=== PATIENT | female | born 1985 | race Caucasian/White ===

== ENCOUNTER 2024-11-24 00:43 | Emergency (ER) | payer OTHER, SELFPAY ==
[2024-11-24 00:51] VITALS: BP 110/75; PULSE 67; RESP 20; TEMP 36.5; O2SAT 99; BMI 24.2
--- NOTE | 2024-11-24 00:56 | ECG_ITS ---
[facility] Test Date: 2024-11-24 Pat Name: Kaylynn Jones Department: Room: Gender: Female Conflicts Analyst: : 1985 Requested By: Jake Concepcion Order Number: [id number] Bryan MD: SARIAH MC Measurements Intervals [place] Rate: 66 P: 54 OK: 150 QRS: 81 QRSD: 96 T: 70 QT: 392 QTc: 412 Interpretive Statements SINUS RHYTHM WITH SINUS ARRHYTHMIA No previous ECG available for comparison Electronically Signed On 11-24-2024 23:21:15 CDT by SARIAH MC [email or web address]
--- NOTE | 2024-11-24 00:56 | XRR_ITS ---
PROCEDURE INFORMATION: Exam: XR Chest Exam date and time: 11/24/2024 1:00 AM Age: 39 years old Clinical indication: Other: Syncope TECHNIQUE: Imaging protocol: Radiologic exam of the chest. Views: 1 view. COMPARISON: No relevant prior studies available. FINDINGS: Lungs: Unremarkable. No consolidation. Pleural spaces: Unremarkable. No pleural effusion. No pneumothorax. Heart/Mediastinum: Unremarkable. No cardiomegaly. Bones/joints: Unremarkable. XR/XR chest 1V portable [id number] IMPRESSION: No acute findings.
--- NOTE | 2024-11-24 00:57 | CTR_ITS ---
PROCEDURE INFORMATION: Exam: CT Head Without Contrast Exam date and time: 11/24/2024 1:15 AM Age: 39 years old Clinical indication: Dizziness; Additional info: Syncope/ tingling/ dizzy TECHNIQUE: Imaging protocol: Computed tomography of the head without contrast. Radiation optimization: All CT scans at this facility use at least one of these dose optimization techniques: automated exposure control; mA and/or kV adjustment per patient size (includes targeted exams where dose is matched to clinical indication); or iterative reconstruction. COMPARISON: No relevant prior studies available. RADIATION DOSE METRICS: Total DLP (mGy-cm): 1028.58 FINDINGS: Brain: Normal. No hemorrhage. Unremarkable white matter. No mass effect. Cerebral ventricles: No ventriculomegaly. Paranasal sinuses: Visualized sinuses are unremarkable. No fluid levels. Mastoid air cells: Visualized mastoid air cells are well aerated. Bones: Unremarkable. No acute fracture. Soft tissues: Unremarkable. CT/CT head wo con* [id number] IMPRESSION: No acute intracranial abnormality.
[2024-11-24 01:30] VITALS: BP 112/72; PULSE 71; O2SAT 100
[2024-11-24 01:40] LABS: Hematocrit 40.4 % (36-47); Hemoglobin 13.70 g/dL (11.27-16.99); Mean Corpuscular HGB Conc 33.9 g/dL (30-55); Mean Corpuscular Hemoglobin 29.1 pg (27-33); Mean Corpuscular Volume 86.0 fl (85-98); Nucleated Red Blood Cells % 0 %; Platelet Count 299 10^3/cmm (157-399); Red Blood Count 4.70 10^6/uL (3.85-5.65); White Blood Count 19.52 10^3/uL (3.29-11.43)
[2024-11-24 02:00] VITALS: BP 105/70; PULSE 76; O2SAT 100
[2024-11-24 02:01] LABS: Glucose Urine UA Norm (Normal); Nitrate Urine Negative (Negative); Specific Gravity, Urine 1.020 (1.005-1.030)
[2024-11-24 02:02] LABS: Troponin(5th) Baseline < 6 ng/L (0-10)
[2024-11-24 02:04] LABS: Add Urine Microscopic? YES; UA Manual Slide Review YES
[2024-11-24 02:05] LABS: Alanine Aminotransferase 20 U/L (0-33); Albumin Level 4.1 g/dL (3.5-5.2); Alkaline Phosphatase 55 U/L (35-105); Anion Gap 14.8 (5-19); Aspartate Amino Transferase 24 U/L (0-32); Blood Urea Nitrogen 10 mg/dL (6-20); Calcium 8.2 mg/dL (8.5-10.5); Carbon Dioxide 22 mmol/L (22-29); Chloride 106 mmol/L (98-107); Creatinine Clr Calc Pharmacy 122.3206; Globulin 1.9 g/dL (1.3-4.6); Glucose 119 mg/dL (65-115); Osmolality Calculated 288 mOsm/kg (285-295); Potassium 3.8 mmol/L (3.5-5.1); Sodium 139 mmol/L (136-145); Total Protein 6.0 g/dL (6.6-8.7)
[2024-11-24 02:07] LABS: HCG, Serum Qual Negative (Negative)
[2024-11-24 02:20] LABS: Lipase 22 U/L (13-60)
[2024-11-24 02:30] VITALS: BP 140/76; PULSE 80; O2SAT 97
[2024-11-24 03:00] VITALS: BP 103/63; PULSE 71; O2SAT 98
--- NOTE | 2024-11-24 03:09 | W.ED.SYNCOPE ---
HPI - Syncope General: Chief Complaint: Syncope Stated Complaint: Faint Pulse\Weird Tingling\Passing Out Time Seen by Provider: 11/24/24 01:33 History of Present Illness: Patient is a 39-year-old female who presents to the emergency department in the egg setter hours after an episode of near-syncope. She reports getting up to urinate when she suddenly felt nauseated. After urinating, she sat down on the bathroom floor due to feeling lightheaded and dizzy. She denies actually vomiting but continued to feel nauseated. The patient experienced generalized paresthesia, described as tingling sensations that were more pronounced in her arms but felt all over her body. These sensations were intermittent, coming and going. She managed to return to the bedroom where she woke her , who noted that her pulse was weak and slow at both carotid and radial sites. The patient denies any prior similar episodes except for one instance over ten years ago when she was actively vomiting. She reports feeling well the day prior with no prodromal symptoms. Of note, the patient reports being outside all day Monday and Monday with minimal fluid intake ( probably a bottle of water). Her also mentioned that their child had a brief stomach upset after dinner, though the patient denies consuming any suspicious food. Related Data Home Medications ?Medication ?Instructions ?Recorded ?Confirmed No Known Home Medications 12/23/19 01/01/20 Allergies Allergy/AdvReac Type Severity Reaction Status Date / Time No Known Allergies Allergy Unverified 01/01/20 09:24 [facility] ED [facility]: Medical History (Updated 11/24/24 @ 03:12 by Jake Colbert DO) No pertinent past medical history Surgical History (Updated 12/25/19 @ 09:21 by Shay Rose MD) S/P laparoscopic cholecystectomy (~2009) Performed in [place]. S/P tubal ligation (~2009) Laparoscopic. Performed in [place]. Family History Family/Other CAD (coronary artery disease) Maternal Uncle Grandfather CAD (coronary artery disease) Paternal Grandmother CAD (coronary artery disease) Maternal Diabetes Maternal Mother Family history of thyroid problem Social History (Updated 01/04/20 @ 13:46 by Shay Rose MD) Smoking and tobacco/nicotine status: never used tobacco/nicotine Alcohol intake: current Substance/Drug Use: never Physical Exam Const: COMMON NORMALS: no acute distress and alert GENERAL APPEARANCE: cooperative; not ill appearing and not frail appearing HENMT: COMMON NORMALS: normocephalic, atraumatic and Normal external nose present HEAD & SCALP: normocephalic and atraumatic FACE & SINUS: normal facial exam and face symmetric NOSE: Normal external nose present Eye: COMMON NORMALS: Equal, round and reactive pupils present and EOMs intact bilaterally PUPIL: Yes Equal, round and reactive pupils present Neck/C-Spine: GENERAL: Yes trachea midline Chest: CHEST: Yes Symmetrical chest wall rise Resp: COMMON NORMALS: normal respiratory effort, No retractions, No use of accessory muscles and clear to auscultation bilaterally AUSCULTATION: clear to auscultation bilaterally Cardio: COMMON NORMALS: regular rate and regular rhythm RATE: regular rate RHYTHM: regular rhythm GI: COMMON NORMALS: Normal to inspection, nondistended, normoactive bowel sounds present Extremity: COMMON NORMALS: no pedal edema Neuro: ANNABEL COMA SCALE: document GCS findings Annabel coma scale eye opening: Spontaneous [place] coma scale verbal response: Orientated Annabel coma scale motor response: Obey commands [place] coma scale total score: 15 COMMON NORMALS: moves all extremities and no focal motor deficits SENSORIUM/ORIENTATION: Yes alert SENSORY EXAM: Yes extremities (intact) Psych: COMMON NORMALS: speech normal SPEECH: Yes normal speech Skin: COMMON NORMALS: no rashes or lesions noted GENERAL SKIN EXAM: no rashes or lesions noted Course Vital Signs: Vital signs: Vital Signs Temperature 97.7 F 11/24/24 00:51 Pulse Rate 73 11/24/24 03:15 Respiratory Rate 20 H 11/24/24 00:51 Blood Pressure 117/72 11/24/24 03:15 Pulse Oximetry 98 11/24/24 03:15 Oxygen Delivery Me thod Room Air 11/24/24 02:00 MDM - Syncope Medical Decision Making 39-year-old female with near syncopal episode. This happened while urinating. By history, sounds to be vasovagal in nature. EKG shows sinus rhythm with sinus arrhythmia. Rate is 65. [place] is normal. Intervals are normal. No ST-T wave changes. EKG timed 0050 with interpretation [address]52[address] Head CT is nonacute. Chest x-ray is negative. White blood cell count is 19, but with no left shift. 80% neutrophils. CRP is only 3. Urinalysis is heavily contaminated. She did admit to being outside the past 2 days and not drinking much water. Because of this, she was given a liter bolus. She is feeling somewhat improved. She will be discharged home Lab Data 11/24/24 01:33 11/24/24 01:33 Radiology Impressions Chest X-Ray 11/24/24 00:56 IMPRESSION: No acute findings. Head CT 11/24/24 00:57 IMPRESSION: No acute intracranial abnormality. Laboratory Results WBC 19.52 10^3/uL (3.29-11.43) H 11/24/24 01:33 RBC 4.70 10^6/uL (3.85-5.65) 11/24/24 01:33 Hgb 13.70 g/dL (11.27-16.99) 11/24/24 01:33 Hct 40.4 % (36-47) 11/24/24 01:33 MCV 86.0 fl (85-98) 11/24/24 01:33 MCH 29.1 pg (27-33) 11/24/24 01:33 MCHC 33.9 g/dL (30-55) 11/24/24 01:33 RDW 12.4 % (12.1-15.1) 11/24/24 01:33 Plt Count 299 10^3/cmm (157-399) 11/24/24 01:33 MPV 9.2 fL (7.4-10.4) 11/24/24 01:33 Neut % (Auto) 79.8 % 11/24/24 01:33 Lymph % (Auto) 8.9 % 11/24/24 01:33 [place] % (Auto) 9.6 % 11/24/24 01:33 Eos % (Auto) 1.1 % 11/24/24 01:33 Baso % (Auto) 0.2 % 11/24/24 01:33 Neut # (Auto) 15.57 10^3/uL (1.8-7.7) H 11/24/24 01:33 Lymph # (Auto) 1.7 10^3/uL (0.8-4.8) 11/24/24 01:33 [place] # (Auto) 1.9 10^3/uL (0.2-0.9) H 11/24/24 01:33 Eos # (Auto) 0.2 10^3/uL (0.0-0.8) 11/24/24 01:33 Baso # (Auto) 0.0 10^3/uL (0.0-0.1) 11/24/24 01:33 Nucleated RBC % (auto) 0 % 11/24/24 01:33 Nucleated RBCs # 0.0 /100WBC 11/24/24 01:33 Sodium 139 mmol/L (136-145) 11/24/24 01:33 Potassium 3.8 mmol/L (3.5-5.1) 11/24/24 01:33 Chloride 106 mmol/L (98-107) 11/24/24 01:33 Carbon Dioxide 22 mmol/L (22-29) 11/24/24 01:33 Anion Gap 14.8 (5-19) 11/24/24 01:33 BUN 10 mg/dL (6-20) 11/24/24 01:33 Creatinine 0.6 mg/dL (0.5-0.9) 11/24/24 01:33 GFR Calculation 110.2 mL/min (90-130) 11/24/24 01:33 Glucose 119 mg/dL (65-115) H 11/24/24 01:33 Calculated Osmolality 288 mOsm/kg (285-295) 11/24/24 01:33 Calcium 8.2 mg/dL (8.5-10.5) L 11/24/24 01:33 Total Bilirubin 0.3 mg/dL (0.15-1.2) 11/24/24 01:33 AST 24 U/L (0-32) 11/24/24 01:33 ALT 20 U/L (0-33) 11/24/24 01:33 Alkaline Phosphatase 55 U/L (35-105) 11/24/24 01:33 Troponin T Baseline < 6 ng/L (0-10) 11/24/24 01:33 Troponin T 120 Minute < 6.0 ng/L (0-10) 11/24/24 03:09 Delta Troponin T 0 ABS# (0-10) 11/24/24 03:09 C-Reactive Protein 3.0 mg/L (0.0-4.9) 11/24/24 01:33 Total Protein 6.0 g/dL (6.6-8.7) L 11/24/24 01:33 Albumin 4.1 g/dL (3.5-5.2) 11/24/24 01:33 Globulin 1.9 g/dL (1.3-4.6) 11/24/24 01:33 Lipase 22 U/L (13-60) 11/24/24 01:33 HCG, Qual Negative (Negative) 11/24/24 01:33 Urine Color Yellow (Yellow) 11/24/24 01:34 Urine Appearance Cloudy (CLEAR) A 11/24/24 01:34 Urine pH 6 (5-7) 11/24/24 01:34 Ur Specific [place] 1.020 (1.005-1.030) 11/24/24 01:34 Urine Protein Neg (Negative) 11/24/24 01:34 Urine Glucose (UA) Norm (Normal) 11/24/24 01:34 Urine Ketones Negative (Negative) 11/24/24 01:34 Urine Blood Neg (Negative) 11/24/24 01:34 Urine Nitrate Negative (Negative) 11/24/24 01:34 Urine Bilirubin Neg (Negative) 11/24/24 01:34 Urine Urobilinogen Norm mg/dL (Negative) 11/24/24 01:34 Ur Leukocyte Esterase 1+ (Negative) H 11/24/24 01:34 Urine RBC 0-4 /hpf (0-2) H 11/24/24 01:34 Urine WBC 5-10 /hpf (0-5) H 11/24/24 01:34 Ur Squamous Epith Cells 40-55 /hpf (0-5) H 11/24/24 01:34 Amorphous Sediment Not Reportable 11/24/24 01:34 Urine Bacteria 2+ /hpf (NONE) H 11/24/24 01:34 Urine Mucus 2+ /hpf 11/24/24 01:34 Urine Yeast Trace /hpf 11/24/24 01:34 All radiology interpretation(s) finalized by discharge Discharge Plan Discharge Patient Disposition: Home Clinical Impression: Acute dehydration, Near syncope Condition: Stable Prescriptions: No Action No Known Home Medications Discharge Orders: Discharge ED (Routine); Ordered 11/24/24 Ordered By: Jake Colbert Patient Instructions: Dehydration (ED), Near Syncope (ED), Opioid Safety, Pain Management, Patient Portal & Rob Instructions Activity Restrictions/Additional Instructions: Return for repeated episodes of syncope or passing out, development of chest pain, shortness of breath, fever, any other concerning symptoms. Drink plenty of clear liquids for the next 48 hours and stay in a cool environment. Follow-up with your doctor. Print Language: Niuean Coding Level of Care Code ED [facility] for Radha Acosta
[2024-11-24 03:15] VITALS: BP 117/72; PULSE 73; O2SAT 98
[2024-11-24 03:44] LABS: Troponin 5 2HR < 6.0 ng/L (0-10); Troponin 5 2HR Delta 0 ABS# (0-10)
== END 2024-11-24 03:25 | disposition home or self-care (01) ==
PROVIDERS: Emergency Provider Emergency Medicine
DX: E86.0 Dehydration (principal); R55 Syncope and collapse
CPT/HCPCS: 36415; 70450; 71045; 80053; 81001; 83690; 84484; 84703; 85025; 86140; 93005; 99285; J7030